=== PATIENT | male | born 1990 | race Caucasian/White ===

== ENCOUNTER → 2017-03-15 | Outpatient (CLI) | payer BC | LOC: FIMAGING 08:56 | PROVIDERS: ATTEND Family Medicine | DX: F45.8 Other somatoform disorders (principal); R13.13 Dysphagia, pharyngeal phase ==

== ENCOUNTER 2017-05-07 06:54 | Observation (INO) | payer BC ==
--- NOTE | 2017-05-04 08:25 | GHP ---
[f rep st] PREOP HISTORY AND PHYSICAL IDENTIFYING DATA: This is a 26-year-old with a thyroglossal duct cyst. HISTORY OF PRESENT ILLNESS: He had some tenderness in the midline of the neck. An MRI showed a thyroglossal duct cyst in the mid portion of the hyoid bone. He has been treated with prednisone as well as Augmentin. I have reviewed his MRI findings with the patient and his . He presents for excision of a thyroglossal duct cyst. PAST MEDICAL HISTORY: Otherwise in good health. PHYSICAL EXAMINATION: GENERAL: He is in no acute distress. NECK: Without any thyromegaly or lymphadenopathy. HEENT: Facial strength is equal. Cranial nerves intact. LUNGS: Clear without wheezing. HEART: Regular rate and rhythm. No murmurs, rubs or gallops. NEUROLOGIC: He is alert and oriented x3. IMPRESSION: Thyroglossal duct cyst. RECOMMENDATIONS: I had a detailed discussion with the patient and his about Brandon procedure, excision of thyroglossal duct cyst. We talked in detail about the risks of bleeding, infection, anesthesia, damage to the cranial nerves and difficulty moving the tongue. We talked about the risks of recurrence. We talked about the benefits of removing it before it becomes infected and abscessed. We talked about the alternatives of a second opinion or observation. He understands and agrees to proceed and all questions were answered. /[id number]/MODL MTDD
[~2017-05-07 06:54] MED LIST: ceFAZolin 2 GM/DEXTROSE 100 ML IV ONE
[2017-05-07] MEDS ORDERED: LR 1,000 ML IV ONE (07:35)
[2017-05-07] MEDS ORDERED: LIDOCAINE 1% 2 ML INJ ID PRN (07:35)
[2017-05-07] MEDS ORDERED: LIDO/EPI 1% **Not for Epidural 20 ML MDV ONE (07:49)
[2017-05-07] MEDS ORDERED: CEFAZOLIN 2 GM/DEXTROSE/100 ML BAG IV ONE (08:00)
--- NOTE | 2017-05-07 08:34 | PDHPUP ---
History & Physical Update H&P update statement: This history and physical update is based on an assessment of the patient which was completed after admission or registration (within 24 hours), but prior to the surgery/procedure. H&P update: H&P reviewed & patient examined, no change in patient's condition since H&P completed
[2017-05-07] MEDS ORDERED: MIDAZOLAM 2 MG/2 ML VIAL IVP ONE (09:55)
--- NOTE | 2017-05-07 09:57 | PDANEPAE ---
ANE History of Present Illness 26yo M for thyroglossal ANE Past Medical History - Cardiovascular History Hx Hypertension: No Hx Arrhythmias: No Hx Chest Pain: No Hx Coronary Artery / Peripheral Vascular Disease: No Hx CHF / Valvular Disease: No Hx Palpitations: No - Pulmonary History Hx COPD: No Hx Asthma/Reactive Airway Disease: No Hx Recent Upper Respiratory Infection: No Hx Oxygen in Use at Home: No Hx Sleep Apnea: No Sleep Apnea Screening Result - Last Documented: Negative Pulmonary History Comment: CHILDHOOD ASTHMA - Neurologic History Hx Cerebrovascular Accident: No Hx Seizures: No Hx Dementia: No - Endocrine History Hx Diabetes: No - Renal History Hx Renal Disorders: No - Liver History Hx Hepatic Disorders: No - Neurological & Psychiatric Hx Hx Neurological and Psychiatric Disorders: Yes Neurological / Psychiatric History Comment: ANXIETY & DEPRESSION - Cancer History Hx Cancer: No - Congenital Disorder History Hx Congenital Disorders: No - GI History Hx Gastrointestinal Disorders: No - Other Health History Other Health History: NEG - Chronic Pain History Chronic Pain: No - Surgical History Prior Surgeries: ELBOW R. ACL L. WISDOM TEETH ANE Review of Systems Review of systems is: negative - Exercise capacity METS (RN): 5 METS ANE Patient History - Allergies Allergies/Adverse Reactions: codeine Allergy (Verified 04/29/17 11:09) stomach pain hydrocodone Allergy (Verified 04/29/17 11:09) hyper senstive - Home Medications Home Medications: Venlafaxine Xr [Effexor Xr 75MG (*)] 150 mg PO DAILY 04/29/17 [Last Taken 22:30] - NPO status NPO Since - Liquids (Date): 05/06/17 NPO Since - Liquids (Time): 23:30 NPO Since - Solids (Date): 05/06/17 NPO Since - Solids (Time): 19:00 - Smoking Hx Smoking Status: Never smoked - Family Anes Hx Family Hx Anesthesia Complications: NEG ANE Labs/Vital Signs - Vital Signs Blood Pressure: 133/94 Heart Rate: 73 Respiratory Rate: 12 O2 Sat (%): 95 Height: 185.42 cm Weight: 104.326 kg ANE Physical Exam - Airway Neck exam: FROM Mallampati Score: Class 2 Mouth exam: normal dental/mouth exam - Pulmonary Pulmonary: no respiratory distress, clear to auscultation - Cardiovascular Cardiovascular: regular rate and rhythym - ASA Status ASA Status: I ANE Anesthesia Plan Anesthesia Plan: general endotracheal anesthesia
[2017-05-07] MEDS ORDERED: MIDAZOLAM 2 MG/2 ML VIAL ONE (09:59)
[2017-05-07] MEDS ORDERED: fentaNYL 100 MCG/2 ML INJ ONE ×3 (10:01→10:36)
[2017-05-07] MEDS ORDERED: PROPOFOL 200 MG/20 ML VIAL ONE ×2 (10:01→10:25)
[2017-05-07] MEDS ORDERED: SUCCINYLCHOLINE CHLORIDE*ANESTHESIA ONLY*200 MG/10 ML SYR IVP ONE (10:03)
[2017-05-07] MEDS ORDERED: OXYCODONE/APAP 5/325 TAB PO PRN (10:45)
[2017-05-07] MEDS ORDERED: HYDROmorphONE/DILAUDID 1 MG/ML SYR IVP PRN ×2 (10:45)
[2017-05-07] MEDS ORDERED: NALOXONE HCL 0.4 MG/ML INJ IVP PRN (10:45)
[2017-05-07] MEDS ORDERED: ONDANSETRON 4 MG/2 ML VIAL IVP PRN (10:45)
[2017-05-07] MEDS ORDERED: fentaNYL 100 MCG/2 ML INJ IVP PRN ×2 (10:45)
[2017-05-07] MEDS: traMADol 50 MG TAB PO PRN (14:10)
--- NOTE | 2017-05-07 14:28 | POSTOPPROG ---
Post Op Note Date of Operation: 05/07/17 Surgeon: Gordo Rosen Pre-op Diagnosis: thyroglossal duct cyst Post-op Diagnosis: same Indication: thyroglossal duct cyst Procedure: Sinstrunk procedure, exicison fo thyroglossal duct cyst. Inf/Abcess present in the surg proc area at time of surgery?: No
[2017-05-07] MEDS: DEXAMETHASONE 4 MG TAB PO SCH (14:47)
[2017-05-07] MEDS ORDERED: HYDROmorphONE/DILAUDID 2 MG/ML INJ IVP PRN (15:16)
[2017-05-07] MEDS ORDERED: ACETAMINOPHEN 325 MG TAB PO PRN (17:08)
--- NOTE | 2017-05-07 17:08 | SOAPPROG ---
SOAP Progress Note Assessment/Plan: Assessment: Strong voice. Tongue moves well in all directions. Neck flat. No hematoma. Plan: 05/07/17 17:06 Zofran for nausea. Pain meds. Continue support/drain. Objective: Vital Signs Temp Pulse Resp BP Pulse Ox 36.4 C 85 18 130/76 H 92 05/07/17 16:22 05/07/17 16:22 05/07/17 16:22 05/07/17 16:22 05/07/17 16:22 05/06/17 05/07/17 05/08/17 05:59 05:59 05:59 Intake Total 900 Output Total 25 Balance 875 ICD10 Worksheet Patient Problems: Problems Problem Status Onset Thyroglossal duct cyst Acute Thyroglossal duct cyst Acute - ICD10 Problem Qualifiers (1) Thyroglossal duct cyst (2) Thyroglossal duct cyst
[2017-05-07] MEDS: ONDANSETRON 4 MG/2 ML VIAL IVP PRN ×2 (18:13→21:16)
--- NOTE | 2017-05-07 21:51 | GOP ---
[f rep st] OPERATIVE REPORT DATE OF OPERATION: 05/07/2017 SURGEON: Gordo Rosen MD MANAGER SOLAR: Dr. Macario ANESTHESIA: General endotracheal. PREOPERATIVE DIAGNOSIS: Thyroglossal duct cyst. POSTOPERATIVE DIAGNOSIS: Thyroglossal duct cyst. PROCEDURE PERFORMED: Excision of the thyroglossal duct cyst (Brandon procedure). FINDINGS: Thyroglossal duct cyst with 2 separate cystic components, one anterior and one deep to th e hyoid. SPECIMENS: Thyroglossal duct cyst with midportion of hyoid bone. ESTIMATED BLOOD LOSS: 25 mL. DESCRIPTION OF PROCEDURE: The patient was placed in the supine position and orally endotracheally i ntubated. We had marked his cyst in the preoperative holding area. We marked an incision in a rela [id number] crease in the neck. It was injected with 1% lidocaine with 1:100,000 epinephrine. He was sterilely prepped and draped. We made an incision through the skin with a 15-blade scalpel. Subplatysmal flaps were elevated. Th e straps were divided in the midline. We identified the thyrohyoid membrane and dissected superiorl y. We did note a cyst that measured about a centimeter over the top of his hyoid bone. We dissecte d the strap muscles away from the hyoid bone laterally. We then cut the hyoid bone laterally, being sure to include a good midportion of the hyoid. We then dissected up to the base of the tongue, an d the cystic area had another extension up towards the tongue base. We dissected towards the tongue base and removed it in its entirety. We did place a 2-0 silk across the tongue base where the cyst ended. The wound was copiously irrigated and suctioned. Hemostasis was achieved with bipolar. A quarter-i nch [place] drain was placed deep. The strap muscles were reapproximated. The platysma was reappro ximated with 3-0 chromic. The skin was closed with 5-0 nylon. The drain was sewn into position as was a sleeper stitch. A pressure dressing was applied. He tolerated the procedure well and was in good condition at the end of the procedure. /[id number]/MODL
[2017-05-08] MEDS: DEXAMETHASONE 4 MG TAB PO SCH (08:25)
[2017-05-08] MEDS: traMADol 50 MG TAB PO PRN (08:25)
[2017-05-08 08:39] VITALS: BP 128/85; PULSE 72; RESP 10; TEMP 97.7; O2SAT 96
--- NOTE | 2017-05-08 09:23 | SOAPPROG ---
SOAP Progress Note Assessment/Plan: Assessment: Pt diong remarkably well. He is parker PO and has pain of 2/10. Will discharge with the arnie drain as it is leaking some serous fluid. Plan: D/C home Diet regular Keflex 500mg PO tid for 3 days Follow up in two days at my office 05/08/17 09:20 Subjective: I feel great Objective: Vital Signs Temp Pulse Resp BP Pulse Ox 36.5 C 72 10 L 128/85 H 96 05/08/17 08:37 05/08/17 08:37 05/08/17 08:37 05/08/17 08:37 05/08/17 08:37 05/07/17 05/08/17 05/09/17 05:59 05:59 05:59 Intake Total 1300 Output Total 925 Balance 375 PT sitting up in bed, finished breakfast and speaking clearly. Neck incision looks good, dressing has some expected sero-sang drainage Flat without sign of infection. new dressing placed. ICD10 Worksheet Patient Problems: Problems Problem Status Onset Thyroglossal duct cyst Acute Thyroglossal duct cyst Acute
== END 2017-05-08 11:39 | disposition home or self-care (01) ==
LOC: F3E 06:54 → PREINTOOBSV 15:09
PROVIDERS: ADMIT Otolaryngology; ATTEND Otolaryngology
PROC: 0JB40ZZ Excision of Right Neck Subcutaneous Tissue and Fascia, Open Approach (ICD-10-PCS; principal; 2017-05-07 08:45)
DX: Q89.2 Congenital malformations of other endocrine glands (principal)
CPT/HCPCS: 60280; G0378; J0330; J0690; J1170; J2250; J2405; J2704; J3010

== ENCOUNTER → 2017-09-30 | Outpatient (CLI) | payer BC | LOC: FIMAGING 14:19 | PROVIDERS: ATTEND Family Medicine | DX: M54.2 Cervicalgia (principal) ==

== ENCOUNTER → 2019-04-06 | Outpatient (CLI) | payer BC | LOC: FIMAGING 07:06 ==